=== PATIENT | female | born 1995 | race Caucasian/White ===

== ENCOUNTER 2021-10-04 22:29 | Emergency (ER) | payer OTHER ==
[~2021-10-04 22:29] MED LIST: COLACE100 MG PO; IBUPROFEN800 MG PO; LODINE CAP 300300 MG PO; NORCO 7.5-3251 EACH PO; PENVEE K 500 M500 MG PO; ZOFRAN ODT 4 MG4 MG PO; ZOFRAN4 MG PO; ZOLOFT100 MG PO
[2021-10-04 23:51] LABS: HEMOGLOBIN 13.7 gm/dl (12.3-15.3); RED BLOOD COUNT 4.26 M/UL (4.00-5.10); WHITE BLOOD COUNT 14.7 K/UL (4.5-11.0)
[2021-10-05 00:20] LABS: BUN/CREATININE RATIO 20 (0-10)
[2021-10-05] MEDS ORDERED: PREDNISONE 20 M20 MG PO (05:20)
[2021-10-05] MEDS ORDERED: OMNICEF 300 MG300 MG PO (05:20)
[2021-10-05] MEDS ORDERED: ZITHROMAX250 MG PO (05:20)
[2021-10-05] MEDS ORDERED: PROVENTIL HFA6.7 GM INH (05:20)
[2021-10-05] MEDS ORDERED: ALBUTEROL2.5 MG/3 M INH (05:20)
== END 2021-10-05 05:40 | disposition home or self-care (01) ==
LOC: ER1 22:29
PROVIDERS: Physician Assistant
DX: J44.0 Chronic obstructive pulmonary disease with (acute) lower respiratory infection (principal); J18.9 Pneumonia, unspecified organism; Z20.822 Contact with and (suspected) exposure to COVID-19; F17.210 Nicotine dependence, cigarettes, uncomplicated
CPT/HCPCS: 0240U; 36600; 71045; 80053; 82550; 82553; 82803; 83874; 83880; 84484; 84703; 85025; 85379; 85610; 85730; 93005; 94640; 94664; 94760; 96365; 96375; 99285; J1100; J3475